=== PATIENT | female | born 1990 | race Caucasian/White ===

== ENCOUNTER 2023-11-11 16:20 | Inpatient (IN) | payer BC, SELFPAY ==
[2023-11-11] MEDS ORDERED: Bacitracin Zinc Ointment 30 gm TUBE ONE (16:41)
[2023-11-11] MEDS ORDERED: Bupivacaine PF 0.5% 30 ML VIAL ONE (16:41)
[2023-11-11 17:36] LABS: #Basophils 0.05 10x3/uL (0.0-0.2); %Basophils 0.5 % (0.0-1.0); %Eosinophils 2.2 % (0.0-10.0); %Monocytes 9.6 % (0.0-10.0); %Neutrophils 66.5 % (42.0-75.0); Hematocrit 39.3 % (36.0-47.0); Hemoglobin 13.7 g/dL (12.0-16.0); Mean Corpuscular HGB CONC 34.9 g/dL (32.0-36.0); Mean Corpuscular Hemoglobin 32.4 pg (27.0-31.0); Mean Corpuscular Volume 92.9 fL (78.0-98.0); Mean Platelet Volume 9.5 fL (7.4-10.4); Platelet Count 331 10x3/uL (130-400); RBC Distribution Width 12.2 % (11.5-14.5); Red Blood Cell (RBC) Count 4.23 mill/uL (4.20-5.40)
[2023-11-11] MEDS ORDERED: Vancomycin 1 GM/200 ML (FROZEN) BAG ONE (17:38)
[2023-11-11] MEDS ORDERED: fentaNYL PF 100 MCG/2 ML SYRINGE ONE (17:41)
[2023-11-11] MEDS ORDERED: PROPOFOL 20 ML ONE (17:41)
[2023-11-11] MEDS ORDERED: Lidocaine 1% PF 5 ML VIAL ONE (17:42)
[2023-11-11] MEDS ORDERED: Rocuronium Bromide 10 MG/ML (10ML VIAL) ONE (17:42)
[2023-11-11] MEDS ORDERED: Ketorolac Tromethamine 30 MG (1 mL) VIAL ONE (18:14)
[2023-11-11] MEDS ORDERED: Dexamethasone 20 MG/5 ML VIAL ONE (18:14)
[2023-11-11] MEDS ORDERED: Ondansetron PF 4 MG/2 ML Vial ONE (18:14)
[2023-11-11] MEDS ORDERED: SUGAMMADEX SODIUM 200 MG/2 ML VIAL ONE (18:31)
[2023-11-11] MEDS ORDERED: Milk Of Magnesia 30 ML UDCUP PO PRN (18:58)
[2023-11-11] MEDS ORDERED: HYDROcodone/Acetaminophen 5/325 mg Tablet PO PRN (18:58)
[2023-11-11] MEDS ORDERED: Bisacodyl 10 MG SUPP PR PRN (18:58)
[2023-11-11] MEDS ORDERED: Promethazine HCl 25 MG/ML VIAL IM PRN (18:58)
[2023-11-11] MEDS ORDERED: Morphine 4 MG/ML VIAL SLOW IVP PRN (18:58)
[2023-11-11] MEDS ORDERED: Acetaminophen 325 MG TAB PO PRN (18:58)
[2023-11-11] MEDS ORDERED: fentaNYL 50 mcg/mL 1 mL Vial SLOW IVP PRN (18:58)
[2023-11-11] MEDS ORDERED: Communication Order-Pharmacy FS SCH (19:00)
[2023-11-11] MEDS ORDERED: Ketorolac Tromethamine 30 MG (1 mL) VIAL IVP PRN (19:03)
[2023-11-11] MEDS ORDERED: Meperidine HCl/PF 25 MG (1 mL) VIAL IM PRN (19:03)
[2023-11-11 19:43] VITALS: BMI 19.4
[2023-11-11] MEDS: Aspirin 81 mg Enteric Coated Tablet PO SCH (20:47)
[2023-11-11 21:26] LABS: Anion Gap 15 mmol/L (10-20); BUN (Urea Nitrogen) 16 mg/dL (7.0-18.7); Calc. Creatinine Clearance 81 mL/min (70-130); Carbon Dioxide 21 mmol/L (22-29); Chloride 109 mmol/L (98-107); Estimated GFR 103; Glucose 134 mg/dL (70-105); Potassium 4.1 mmol/L (3.5-5.1); Sodium 141 mmol/L (136-145)
[2023-11-11] MEDS: Vancomycin 1 GM in Sodium Chloride 0.9% 250 ML 250 ML IVPB SCH (21:47)
[2023-11-11] MEDS ORDERED: Gentamicin 80 MG/2 ML VIAL IVPB SCH (22:00)
[2023-11-11] MEDS: Gentamicin Sulfate 80 MG in Premix 1 BAG IVPB SCH (22:14)
[2023-11-11] MEDS: TETANUS, DIPHTHERIA TOX,ADULT (TDVAX) 0.5 ML VIAL IM ONE (22:15)
[2023-11-12 05:52] LABS: #Basophils Less than 0.03 10x3/uL (0.0-0.2); #Eosinphils Less than 0.03 10x3/uL (0.0-0.7); %Basophils 0.1 % (0.0-1.0); %Lymphocytes 8.8 % (21.0-51.0); %Monocytes 3.4 % (0.0-10.0); %Neutrophils 87.4 % (42.0-75.0); Hematocrit 38.1 % (36.0-47.0); Hemoglobin 13.1 g/dL (12.0-16.0); Mean Corpuscular HGB CONC 34.4 g/dL (32.0-36.0); Mean Corpuscular Hemoglobin 31.3 pg (27.0-31.0); Mean Corpuscular Volume 90.9 fL (78.0-98.0); Mean Platelet Volume 9.4 fL (7.4-10.4); Platelet Count 274 10x3/uL (130-400); Red Blood Cell (RBC) Count 4.19 mill/uL (4.20-5.40)
[2023-11-12] MEDS: Vancomycin 1 GM in Premix 1 BAG IVPB SCH (08:32)
[2023-11-12] MEDS: HYDROcodone/Acetaminophen 10/325 mg Tablet PO PRN (16:20)
[2023-11-12] MEDS: Ondansetron PF 4 MG/2 ML Vial SLOW IVP PRN (16:26)
[2023-11-12] MEDS: Escitalopram Oxalate 20 mg Tablet PO SCH (20:28)
[2023-11-12] MEDS: Melatonin 3 MG TAB PO SCH (20:29)
[2023-11-12] MEDS: Aztreonam 2 GM in Sodium Chloride 0.9% 100 ML IVPB SCH (21:50)
[2023-11-13] MEDS: traMADol HCl 50 MG TAB PO PRN (03:26)
[2023-11-14] MEDS: LevoFLOXacin 750 mg/D5W 750 MG in Premix 1 BAG IVPB SCH (15:19)
[2023-11-16] MEDS ORDERED: PROPOFOL 20 ML ONE (09:52)
[2023-11-16] MEDS ORDERED: Lidocaine 2% PF 5 ML VIAL ONE (09:52)
[2023-11-16] MEDS ORDERED: fentaNYL PF 100 MCG/2 ML SYRINGE ONE (09:52)
[2023-11-16 12:32] VITALS: BP 93/68; TEMP 98.7
== END 2023-11-16 14:22 | disposition home or self-care (01) | DRG 513 ==
LOC: ERS 16:20 → EDSTATUS 17:10 → SDC 17:11 → SURG A 19:01
PROVIDERS: ADMIT Orthopaedic Surgery Hand Surgery; ATTEND Orthopaedic Surgery Hand Surgery
PROC: 0LB70ZZ Excision of Right Hand Tendon, Open Approach (ICD-10-PCS; principal; 2023-11-12)
PROC: 0LB70ZZ Excision of Right Hand Tendon, Open Approach (ICD-10-PCS; 2023-11-16)
DX: S56.115A Strain of flexor muscle, fascia and tendon of right ring finger at forearm level, initial encounter (principal); L02.511 Cutaneous abscess of right hand; M65.841 Other synovitis and tenosynovitis, right hand; S61.401A Unspecified open wound of right hand, initial encounter; L08.9 Local infection of the skin and subcutaneous tissue, unspecified; F41.9 Anxiety disorder, unspecified; F32.A Depression, unspecified; G47.00 Insomnia, unspecified; F43.10 Post-traumatic stress disorder, unspecified; Z90.89 Acquired absence of other organs; Z98.890 Other specified postprocedural states; Z90.710 Acquired absence of both cervix and uterus; Z88.1 Allergy status to other antibiotic agents; Z88.0 Allergy status to penicillin; S61.234A Puncture wound without foreign body of right ring finger without damage to nail, initial encounter; W29.8XXA Contact with other powered hand tools and household machinery, initial encounter
CPT/HCPCS: 36415; 80048; 80202; 85025; 86141; 87070; 87076; 87077; 87205; J0457; J0665; J1100; J1580; J1885; J1956; J2001; J2405; J2704; J3370-JW; J3490